=== PATIENT | female | born 2000 | race Two or more races ===

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

== ENCOUNTER 2019-09-14 11:40 | Observation (INO) | payer MEDICAID ==
[~2019-09-14] VITALS: Ht 154.9 cm; Wt 84.8 kg
[2019-09-14] MEDS ORDERED: LACTATED RINGER'S 1,000 ML IV ONE (13:45)
== END 2019-09-14 15:15 | disposition home or self-care (01) | DRG 566 ==
LOC: LDRP 11:40
PROVIDERS: ADMIT Obstetrics & Gynecology; ATTEND Obstetrics & Gynecology
DX: O36.8130 Decreased fetal movements, third trimester, not applicable or unspecified (principal); Z3A.37 37 weeks gestation of pregnancy
CPT/HCPCS: 76818; 81002; G0378; 59025; 96361; 96366

== ENCOUNTER 2019-09-16 10:44 | Observation (INO) | payer MEDICAID | END 2019-09-16 13:25 | disposition home or self-care (01) | DRG 566 | LOC: LDRP 10:44 | PROVIDERS: ADMIT Obstetrics & Gynecology; ATTEND Obstetrics & Gynecology | DX: O36.8130 Decreased fetal movements, third trimester, not applicable or unspecified (principal); O42.92 Full-term premature rupture of membranes, unspecified as to length of time between rupture and onset of labor; Z3A.38 38 weeks gestation of pregnancy | CPT/HCPCS: 76818; 81002; G0378; 59025 ==

== ENCOUNTER 2019-09-20 09:05 | Observation (INO) | payer MEDICAID ==
[2019-09-20] MEDS ORDERED: PREN-96 PO (09:53)
[2019-09-20] MEDS ORDERED: ePHEDrine SULFATE 50 MG/ML AMP IV ONE (14:45)
[2019-09-20] MEDS ORDERED: NALOXONE HCL 0.4 MG/ML VIAL IV ONE (14:45)
[2019-09-20] MEDS ORDERED: LIDOCAINE HCL 2 %PF INJ 10ML AMP IJ ONE (14:45)
== END 2019-09-20 10:23 | disposition home or self-care (01) | DRG 566 ==
LOC: LDRP 09:05
PROVIDERS: ADMIT Obstetrics & Gynecology; ATTEND Obstetrics & Gynecology
DX: O36.5930 Maternal care for other known or suspected poor fetal growth, third trimester, not applicable or unspecified (principal); Z3A.38 38 weeks gestation of pregnancy
CPT/HCPCS: 76818; 81002; G0378

== ENCOUNTER 2019-09-22 11:30 | Observation (INO) | payer MEDICAID ==
[~2019-09-22 11:30] MED LIST: PREN-96 PO
== END 2019-09-22 16:15 | disposition home or self-care (01) | DRG 566 ==
LOC: LDRP 11:30
PROVIDERS: ADMIT Obstetrics & Gynecology; ATTEND Obstetrics & Gynecology
DX: O41.03X0 Oligohydramnios, third trimester, not applicable or unspecified (principal); O62.9 Abnormality of forces of labor, unspecified; R00.0 Tachycardia, unspecified; Z3A.39 39 weeks gestation of pregnancy
CPT/HCPCS: 76818; 81002; 84112; G0378; Q0114

== ENCOUNTER 2019-09-23 08:30 | Inpatient (IN) | payer MEDICAID ==
[~2019-09-23] VITALS: Ht 154.9 cm; Wt 86.2 kg
[2019-09-23] MEDS ORDERED: LACT. RINGERS/OXYTOCIN 20UNITS 1,000 ML IV SCH (11:53)
[2019-09-23] MEDS ORDERED: DERMOPLAST 60ML BOTTLE TOP PRN (12:00)
[2019-09-23] MEDS ORDERED: WITCH HAZEL-GLYCERIN PAD TOP PRN (12:00)
[2019-09-23] MEDS ORDERED: LIDOCAINE 2%HCL (LOCAL ANESTH.) INJ 20ML MDV ID ONE (12:00)
[2019-09-23] MEDS ORDERED: PHISODERM TOP SOLN 240ML BTL TOP PRN (12:00)
[2019-09-23] MEDS ORDERED: PENICILLIN G POT 5MIL/D5 50ML 50 ML IV ONE (12:00)
[2019-09-23 13:05] LABS: Basophils # (auto) 0 10 ^3/uL (0-0.2); Basophils % (auto) 0.3 % (0.0-2.0); Eosinophils # (auto) 0.1 10 ^3/uL (0-0.8); Eosinophils % (auto) 0.8 % (0.0-7.0); Hematocrit 39.2 % (36.0-46.0); Hemoglobin 12.9 g/dL (12.2-16.2); Lymphocytes # (auto) 1.5 10 ^3/uL (0.4-5.4); Lymphocytes % (auto) 16.7 % (10.0-50.0); Mean Corpuscular Hemoglobin 28.6 pg (28.0-32.0); Mean Corpuscular Hgb Conc. 32.9 g/dL (32.0-36.0); Monocytes # (auto) 0.6 10 ^3/uL (0-1.3); Neutrophils # (auto) 6.8 10 ^3/uL (1.6-8.6); Neutrophils % (auto) 75.2 % (37.0-80.0); Nucleated Red Blood Cells % 0.2 %; Platelet Count (auto) 291 10^3/uL (140-450); Red Blood Cells 4.51 10^6/uL (4.0-5.20); Red Cell Distribution Width 14.5 % (11.8-14.3)
[2019-09-23 13:21] LABS: INR 0.91 (0.9-1.15); Partial Thromboplastin Time 25.7 sec (23.64-32.05)
[2019-09-23 13:27] LABS: Albumin 2.4 g/dL (3.4-5.0); Calcium 8.2 mg/dL (8.5-10.1)
[2019-09-23 13:30] LABS: BUN/Creatinine Ratio 13.6; Bilirubin, Total 0.4 mg/dL (0.2-1.0); Total Protein 6.5 g/dL (6.4-8.2)
[2019-09-23] MEDS: LACTATED RINGER'S 1,000 ML IV SCH ×2 (13:31→23:19)
[2019-09-23 13:54] LABS: Urine Bacteria FEW /hpf (None Seen); Urine Blood Negative /uL (Negative); Urine Specific Gravity 1.006 (1.001-1.035); Urine WBC 1 /hpf (0 - 5)
[2019-09-23] MEDS: miSOPROStol 50 MCG per PRE-CUT 1/2 TAB PO PRN ×3 (14:04→23:18)
[2019-09-23] MEDS ORDERED: PENICILLIN G POTASSIUM 2,500,000 UNITS in D5W 5% 50 ML IV SCH (16:00)
[2019-09-24] MEDS: miSOPROStol 50 MCG per PRE-CUT 1/2 TAB PO PRN (03:27)
[2019-09-24 04:06] LABS: RPR Non Reactive (Non Reactive)
[2019-09-24] MEDS ORDERED: BUTORPHANOL TARTRATE 2 MG/1 ML VIAL IV ONE (06:15)
[2019-09-24] MEDS ORDERED: ONDANSETRON HCL 4 MG/2 ML VIAL IV PRN (06:15)
[2019-09-24] MEDS: LACTATED RINGER'S 1,000 ML IV SCH ×2 (06:58→13:10)
[2019-09-24] MEDS ORDERED: LACTATED RINGER'S 1,000 ML IV ONE (11:56)
[2019-09-24] MEDS ORDERED: NALOXONE HCL 0.4 MG/ML VIAL IV ONE (12:00)
[2019-09-24] MEDS ORDERED: ePHEDrine SULFATE 50 MG/ML AMP IV ONE (12:00)
[2019-09-24] MEDS ORDERED: fentaNYL 200mCg/100ml W ROPIVA 100 ML EPI SCH (12:00)
[2019-09-24] MEDS: fentaNYL 200mCg/100ml W ROPIVA 100 ML EPI SCH ×2 (12:55→20:23)
[2019-09-24] MEDS ORDERED: LIDOCAINE 2%HCL (LOCAL ANESTH.) INJ 20ML MDV ONE (18:25)
--- NOTE | 2019-09-24 23:20 | NUR ---
Ambulation: Patient OOB with standby assistance by RN. Patient ambulated to bathroom with steady gait. Patient able to void without difficulty 400ml of clear blood tinged urine. [facility]icare teaching provided with returned demonstration by patient. Clean gown provided and bed linen changed. Patient ambulated back to bed with steady gait and no distress noted.
[2019-09-25 03:00] VITALS: BP 117/65
[2019-09-25 06:56] VITALS: BP 122/72
--- NOTE | 2019-09-25 09:00 | NUR ---
VERBALIZED AND DEMONSTRATED BREAST PUMP TO PATIENT AND PATIENT USED IT FOR 20 MIN. PATIENT VERBALIZED BACK TO ME THE UNDERSTANDING OF ALL BREAST PUMP INSTRUCTIONS ON HOW TO USE.
[2019-09-25] MEDS ORDERED: DOCUSATE CALCIUM 240 MG CAP PO SCH (10:00)
[2019-09-25 11:00] VITALS: BP 119/71
[2019-09-25] MEDS: IBUPROFEN 600 MG TAB PO PRN ×2 (11:44→14:45)
--- NOTE | 2019-09-25 11:46 | NUR ---
Per Dr. Ribeiro and multimedia services coordinator Connie bonner to discharge patient after vitals taken at 3 pm and all with-in normal values. Patients infant was was transferred to [place] and patient want to see infant johnathan.
--- NOTE | 2019-09-25 11:57 | NUR ---
reviewed vitals Addendum: 09/25/19 at 1157 by Fidencio Lockett RN Amended: Links added.
--- NOTE | 2019-09-25 15:03 | NUR ---
Discharge: Discharge instructions given as ordered. Pt encouraged to follow up with NAIL TECHNICIAN as instructed. All questions and concerns addressed. Patient verbalized understanding. Medication reconciliation completed and copy given to patient.Patient refused t-dap vaccines. Patient encouraged to prepare to depart unit.
[2019-09-25 15:06] VITALS: BP 120/57
--- NOTE | 2019-09-25 15:10 | NUR ---
Discharge: Patient taken to vehicle via wheelchair with all personal belongings, accompanied by staff and family member. No distress noted at time of departure, no adverse changes in status since initial assessment.
== END 2019-09-25 15:10 | disposition home or self-care (01) | DRG 560 ==
LOC: LDRP 08:30 → OBSVTOIN 11:00 → LDRP 11:18
PROVIDERS: ADMIT Specialist; ATTEND Specialist
PROC: 3E0P7VZ Introduction of Hormone into Female Reproductive, Via Natural or Artificial Opening (ICD-10-PCS; 2019-09-23)
PROC: 10D07Z6 Extraction of Products of Conception, Vacuum, Via Natural or Artificial Opening (ICD-10-PCS; principal; 2019-09-24)
PROC: 0W8NXZZ Division of Female Perineum, External Approach (ICD-10-PCS; 2019-09-24)
DX: O77.0 Labor and delivery complicated by meconium in amniotic fluid (principal); O41.03X0 Oligohydramnios, third trimester, not applicable or unspecified; O36.5930 Maternal care for other known or suspected poor fetal growth, third trimester, not applicable or unspecified; Z37.0 Single live birth; Z3A.39 39 weeks gestation of pregnancy; Z11.59 Encounter for screening for other viral diseases
CPT/HCPCS: 36415; 51702; 59025; 59409; 62282; 76818; 80053; 81001; 84112; 85025; 85610; 85730; 86592; 86850; 86900; 86901; 94760; 94762; 96365; 96366; 96375; G0378; J2405; J2540; J2590; J7060